=== PATIENT | male | born 1985 | race Caucasian/White ===

== ENCOUNTER → 2020-09-16 | Outpatient (CLI) | payer OTHER ==
--- NOTE | 2020-09-22 12:30 | SLEEP ---
[facility] NOCTURNAL POLYSOMNOGRAPHY ORDERED BY: [email or web address] Winston Nocturnal polysomnography was performed for the titration of pressure therapy in this patient with obstructive sleep apnea syndrome with apnea-hypopnea index of 17.4. For testing the patient was fit with a [employer] View full face mask of medium size was used, 4 cm of water pressure were applied to the circuit, and the lights were extinguished. Eight hours and 35 minutes of data were reviewed. There were 331 minutes of sleep identified. Sleep latency was prolonged at 47 minutes. REM latency was normal at 77 minutes. Sleep architecture was fair. There were four REM cycles noted, but a period of wake between 2 and 3:30 a.m. resulting in a reduced sleep efficiency of 64.8%. The electrocardiogram showed a sinus rhythm with an average heart rate of 54 beats per minute. EEG showed normal waveforms for wake and sleep. No epileptiform discharges nor focal events were identified. Respiratory events were optimally palliated with CPAP at a pressure of +7 with which pressure, the patient slept through REM without respiratory events or oxygen desaturation. IMPRESSION: Obstructive sleep apnea syndrome (G47.33). RECOMMENDATION: Nightly use of pressure therapy 7 cm of water. /amadeo Zhou
== END ==
LOC: M SLEEP 20:00
PROVIDERS: ATTEND Nurse Practitioner Family
DX: G47.33 Obstructive sleep apnea (adult) (pediatric) (principal)